=== PATIENT | male | born 1995 | race Two or more races ===

== ENCOUNTER 2025-03-11 09:57 | Outpatient (RCR) | payer MEDICAID, SELFPAY ==
--- NOTE | 2025-03-11 10:35 | PTNOTE_ITS ---
PT OP Initial Eval Patient Information Outpatient Physical Therapy Treatment Date: 03/11/25 Visit Reasons: Pain in left shoulder Medical Diagnosis: Left Arm Pain Treatment Dx #1: Left Arm Pain Start of Care: 03/11/25 Date of Onset: 1 year ago Smoking Status Smoking Status: Never smoker Initial Assessment Subjective: Pt is a 29 y/o male reports of chronic left arm pain with numbness to his fingers. Pt mentioned ~ 1 year ago he was working at [employer] where pain started. 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 Pt has limitation with overhead motions, lifting, chores, self care, cooking, cleaning, and performing recreational activities. No imaging has been done thus far. Objective: Left Shoulder AROM: all motions are WFL Left Shoulder MMTs: grossly 3+/5 Left Scapula MMTs: grossly 3+/5 Assessment: Pt demonstrate left shoulder pain leading to difficulty with ADLs. Pt will attempt physical therapy if pain persist Pt will be refer back to provider for further consultation. [employer] Goals 1) Decrease left arm pain to 2/10 in 6 wks to be able to perform chores 2) Increase left shoulder AROM WNL in 6 wks to be able to perform overhead motions 3) Increase left shoulder MMTs grossly to 4-/5 in 6 wks to be able to perform lifting activities 4) Indep with HEP Treatment Plan 1) Manual Therapy 2) Therapeutic Activities 3) Therapeutic Exercises 4) Modalities (ice, heat) Frequency and Duration: 2 x wk for 6 wks Certification Dates: 03/11/25 to 06/11/25 Procedure Charges OP PT Eval Mod Complex 30 minutes: Yes
== END 2025-04-07 23:59 | disposition home or self-care (01) ==
LOC: CPTX 09:57
PROVIDERS: PCP Physician Assistant; Referring Provider Physician Assistant; Visit Provider Physician Assistant
DX: M25.512 Pain in left shoulder (principal); G89.29 Other chronic pain; R20.0 Anesthesia of skin
CPT/HCPCS: 97162